=== PATIENT | female | born 1990 | race Caucasian/White ===

== ENCOUNTER 2023-06-23 18:01 | Inpatient (IN) | payer OTHER ==
[2023-06-23 19:20] VITALS: BMI 29.7
[2023-06-23] MEDS ORDERED: IBUPROFEN 400 MG TABLET (FP) PO PRN (20:24)
[2023-06-23] MEDS ORDERED: ONDANSETRON *ODT* 4 MG TABLET SL PRN (20:24)
[2023-06-23] MEDS ORDERED: guaiFENesin 600 MG TABLET.ER (FP) PO PRN (20:24)
[2023-06-23] MEDS ORDERED: MAGNESIUM HYDROX 2400MG/30ML ORAL SUSPENSION 30 ML CUP PO PRN (20:24)
[2023-06-23] MEDS ORDERED: POLYETHYLENE GLYCOL (HEALTHYLAX) 3350 17 GM PACKET PO PRN (20:24)
[2023-06-23] MEDS ORDERED: P-EPHED 60MG/TRIPROLIDI 2.5MG TABLET PO PRN (20:24)
[2023-06-23] MEDS ORDERED: BENZOCAINE/MENTHOL (CHLORASEPTIC ) LOZENGE MM PRN (20:24)
[2023-06-23] MEDS ORDERED: ACETAMINOPHEN 325 MG TABLET (FP) PO PRN (20:24)
[2023-06-23] MEDS ORDERED: BENZONATATE 200 MG CAPSULE PO PRN (20:24)
[2023-06-23] MEDS ORDERED: IBUPROFEN 600 MG TABLET (FP) PO PRN (20:24)
[2023-06-23] MEDS ORDERED: DICYCLOMINE HCL 10 MG CAPSULE PO PRN (20:24)
[2023-06-23] MEDS ORDERED: BISMUTH SUBSALICYLATE 524 MG/30 ML PO PRN (20:24)
[2023-06-23] MEDS ORDERED: LOPERAMIDE HCL 2 MG CAPSULE PO PRN (20:24)
[2023-06-23] MEDS ORDERED: chlordiazePOXIDE HCL 25 MG CAPSULE ONE (20:37)
[2023-06-23] MEDS: chlordiazePOXIDE HCL 25 MG CAPSULE PO ONE (20:43)
[2023-06-23] MEDS: propRANOLol HCL 10 MG TABLET PO ONE ×2 (23:14→23:37)
[2023-06-23] MEDS: THIAMINE HCL 100 MG TABLET (FP) PO SCH (23:31)
[2023-06-23] MEDS: hydrOXYzine PAMOATE 25 MG CAPSULE (FP) PO PRN (23:31)
[2023-06-23] MEDS: chlordiazePOXIDE HCL 25 MG CAPSULE PO SCH (23:32)
[2023-06-23] MEDS: MELATONIN 5 MG TABLETS PO SCH (23:33)
[2023-06-24] MEDS: METHOCARBAMOL 500 MG TABLET PO PRN (05:37)
[2023-06-24] MEDS: propRANOLol HCL 10 MG TABLET PO SCH (10:12)
[2023-06-24] MEDS: PRENATAL VITAMINS W/ FOLIC ACID TABLET (FP) PO SCH (10:12)
[2023-06-24 10:32] LABS: HEMATOCRIT 39.8 % (32.4-45.2); HEMOGLOBIN 13.5 GM/dL (10.7-15.3); MCH 34.5 pg (25.7-33.7); MCHC 33.8 g/dl (32.0-36.0); MEAN CELL VOLUME 102.1 fl (80-96); PLATELET COUNT 153 10^3/uL (134-434); RDW 13.6 % (11.6-15.6); WHITE BLOOD COUNT 3.3 K/mm3 (4.0-10.0)
[2023-06-24 10:51] LABS: POTASSIUM 3.9 mmol/L (3.5-5.1)
[2023-06-24 10:59] LABS: ALBUMIN 3.5 g/dl (3.4-5.0); BLOOD UREA NITROGEN 7.2 mg/dL (7-18)
[2023-06-24 11:00] LABS: BILIRUBIN,TOTAL 1.2 mg/dL (0.2-1)
[2023-06-24 11:01] LABS: TOT PROT 6.9 g/dl (6.4-8.2)
[2023-06-24 11:02] LABS: CREATININE 0.9 mg/dL (0.55-1.3)
[2023-06-24] MEDS: chlordiazePOXIDE HCL 25 MG CAPSULE PO PRN (13:45)
[2023-06-24] MEDS: MAG HYDROX/AL HYDROX/SIMETH 30 ML UNIT-DOSE CUP PO PRN (17:38)
[2023-06-25] MEDS: chlordiazePOXIDE HCL 25 MG CAPSULE PO SCH (05:42)
[2023-06-25] MEDS ORDERED: LORazepam 1 MG TABLET PO PRN (12:36)
[2023-06-25 13:01] VITALS: BP 121/83; PULSE 91; RESP 18; TEMP 97.7
[2023-06-25] MEDS ORDERED: LORazepam 2 MG TABLET PO SCH (17:00)
[2023-06-26] MEDS ORDERED: chlordiazePOXIDE HCL 10 MG CAPSULE PO PRN
[2023-06-26] MEDS ORDERED: chlordiazePOXIDE HCL 10 MG CAPSULE PO SCH (05:00)
[2023-06-26] MEDS ORDERED: LORazepam 1 MG TABLET PO SCH (05:00)
[2023-06-27] MEDS ORDERED: LORazepam 0.5 MG TABLET PO SCH (05:00)
[2023-06-27] MEDS ORDERED: chlordiazePOXIDE HCL 10 MG CAPSULE PO SCH (05:00)
[2023-06-28] MEDS ORDERED: chlordiazePOXIDE HCL 10 MG CAPSULE PO ONE (05:00)
[2023-06-28] MEDS ORDERED: LORazepam 0.5 MG TABLET PO ONE (05:00)
== END 2023-06-25 15:00 | disposition left against medical advice (07) | DRG 894 ==
LOC: YASAS 18:01 → Y6N 21:53
PROVIDERS: ADMIT Allergy & Immunology; ATTEND Surgery
PROC: HZ2ZZZZ Detoxification Services for Substance Abuse Treatment (ICD-10-PCS; principal; 2023-06-23)
DX: F10.230 Alcohol dependence with withdrawal, uncomplicated (principal); F10.220 Alcohol dependence with intoxication, uncomplicated; F10.280 Alcohol dependence with alcohol-induced anxiety disorder; F10.282 Alcohol dependence with alcohol-induced sleep disorder; R74.8 Abnormal levels of other serum enzymes
CPT/HCPCS: 36415; 80053; 85027; 86780; 87635; 93005; 93010

== ENCOUNTER 2023-12-14 19:08 | Inpatient (IN) | payer OTHER ==
[2023-12-14 19:54] VITALS: BMI 30.9
[2023-12-14] MEDS ORDERED: guaiFENesin 600 MG TABLET.ER (FP) PO PRN (20:24)
[2023-12-14] MEDS ORDERED: POLYETHYLENE GLYCOL (HEALTHYLAX) 3350 17 GM PACKET PO PRN (20:24)
[2023-12-14] MEDS ORDERED: MAGNESIUM HYDROX 2400MG/30ML ORAL SUSPENSION 30 ML CUP PO PRN (20:24)
[2023-12-14] MEDS ORDERED: BISMUTH SUBSALICYLATE 524 MG/30 ML PO PRN (20:24)
[2023-12-14] MEDS ORDERED: BENZOCAINE/MENTHOL (CHLORASEPTIC ) LOZENGE MM PRN (20:24)
[2023-12-14] MEDS ORDERED: IBUPROFEN 600 MG TABLET (FP) PO PRN (20:24)
[2023-12-14] MEDS ORDERED: NALOXONE HCL 0.4 MG/ML VIAL IM PRN (20:24)
[2023-12-14] MEDS ORDERED: DICYCLOMINE HCL 10 MG CAPSULE PO PRN (20:24)
[2023-12-14] MEDS ORDERED: NALOXONE (NARCAN) HCL 4 MG/0.1 ML SPRAY NS PRN (20:24)
[2023-12-14] MEDS ORDERED: BENZONATATE 200 MG CAPSULE PO PRN (20:24)
[2023-12-14] MEDS ORDERED: LOPERAMIDE HCL 2 MG CAPSULE PO PRN (20:24)
[2023-12-14] MEDS ORDERED: chlordiazePOXIDE HCL 25 MG CAPSULE PO PRN (20:24)
[2023-12-14] MEDS ORDERED: ACETAMINOPHEN 325 MG TABLET (FP) PO PRN (20:24)
[2023-12-14] MEDS ORDERED: chlordiazePOXIDE HCL 25 MG CAPSULE ONE (20:27)
[2023-12-14] MEDS ORDERED: TRIMETHOBENZAMIDE HCL 200MG/2ML INJ IM ONE (20:28)
[2023-12-14] MEDS ORDERED: cloNIDine HCL 0.1 MG TABLET ONE (20:28)
[2023-12-14] MEDS: MAG HYDROX/AL HYDROX/SIMETH 30 ML UNIT-DOSE CUP PO ONE (20:41)
[2023-12-14] MEDS: cloNIDine HCL 0.1 MG TABLET PO ONE (20:41)
[2023-12-14] MEDS: TRIMETHOBENZAMIDE HCL 200MG/2ML INJ IM ONE (20:41)
[2023-12-14] MEDS: chlordiazePOXIDE HCL 25 MG CAPSULE PO ONE (20:41)
[2023-12-14] MEDS: IBUPROFEN 400 MG TABLET (FP) PO PRN (21:27)
[2023-12-14] MEDS: THIAMINE 100 MG TABLET PO SCH (22:46)
[2023-12-14] MEDS: chlordiazePOXIDE HCL 25 MG CAPSULE PO SCH (22:46)
[2023-12-14] MEDS: MELATONIN 5 MG TABLETS PO SCH (22:46)
[2023-12-14] MEDS: METHOCARBAMOL 500 MG TABLET PO PRN (22:49)
[2023-12-15] MEDS: hydrOXYzine PAMOATE 25 MG CAPSULE (FP) PO PRN (00:15)
[2023-12-15] MEDS: ONDANSETRON *ODT* 4 MG TABLET SL PRN (00:15)
[2023-12-15] MEDS: MAG HYDROX/AL HYDROX/SIMETH 30 ML UNIT-DOSE CUP PO PRN (05:54)
[2023-12-15] MEDS ORDERED: cloNIDine HCL 0.1 MG TABLET PO PRN (06:22)
[2023-12-15] MEDS ORDERED: PANTOPRAZOLE 20 MG TABLET PO SCH (10:00)
[2023-12-15 10:21] LABS: HEMATOCRIT 47.5 % (32.4-45.2); MCH 34.2 pg (25.7-33.7); MCHC 33.7 g/dl (32.0-36.0); MEAN CELL VOLUME 101.4 fl (80-96); PLATELET COUNT 143 10^3/uL (134-434); RBC 4.69 M/mm3 (3.60-5.2); RDW 14.2 % (11.6-15.6)
[2023-12-15] MEDS: diazePAM 5 MG TABLET PO SCH (10:28)
[2023-12-15] MEDS: PANTOPRAZOLE 40 MG TABLET PO SCH (10:28)
[2023-12-15] MEDS: PRENATAL VITAMINS W/ FOLIC ACID TABLET (FP) PO SCH (10:28)
[2023-12-15 10:29] LABS: CHLORIDE 95 mmol/L (98-107); SODIUM 128 mmol/L (136-145)
[2023-12-15 10:30] LABS: POTASSIUM 6.8 mmol/L (3.5-5.1)
[2023-12-15 10:37] LABS: ALBUMIN 4.2 g/dl (3.4-5.0); ANION GAP 14 mmol/L (4-13); CO2 20 mmol/L (21-32)
[2023-12-15 10:39] LABS: BLOOD UREA NITROGEN 20.7 mg/dL (7-18); GLUCOSE,RANDOM 147 mg/dL (74-106); SGOT/AST 204 U/L (15-37); SGPT/ALT 146 U/L (13-61)
[2023-12-15 10:40] LABS: BILIRUBIN,TOTAL 3.5 mg/dL (0.2-1)
[2023-12-15 10:41] LABS: ALK PHOS 141 U/L (45-117)
[2023-12-15 10:42] LABS: CALCIUM 8.2 mg/dL (8.5-10.1); CREATININE 2.9 mg/dL (0.55-1.3)
[2023-12-15 14:56] LABS: POTASSIUM 6.9 mmol/L (3.5-5.1)
[2023-12-15] MEDS: SODIUM POLYSTYRENE SULFONATE 15 GM/60 ML BOTTLE PO ONE (16:05)
[2023-12-15] MEDS: traZODone HCL 50 MG TABLET (FP) PO SCH (22:34)
[2023-12-16] MEDS ORDERED: chlordiazePOXIDE HCL 25 MG CAPSULE PO SCH (05:00)
[2023-12-16 10:30] LABS: CHLORIDE 89 mmol/L (98-107); POTASSIUM 5.8 mmol/L (3.5-5.1); SODIUM 125 mmol/L (136-145)
[2023-12-16 10:34] LABS: ANION GAP 16 mmol/L (4-13); CO2 20 mmol/L (21-32)
[2023-12-16 10:36] LABS: GLUCOSE,RANDOM 178 mg/dL (74-106)
[2023-12-16 10:38] LABS: CREATININE 6.1 mg/dL (0.55-1.3); SGOT/AST 178 U/L (15-37); SGPT/ALT 84 U/L (13-61)
[2023-12-16 10:41] LABS: BILIRUBIN,TOTAL 3.2 mg/dL (0.2-1); TOT PROT 6.5 g/dl (6.4-8.2)
[2023-12-16 10:42] LABS: ALBUMIN 3.3 g/dl (3.4-5.0); ALK PHOS 98 U/L (45-117); CALCIUM 5.7 mg/dL (8.5-10.1)
[2023-12-16] MEDS: diazePAM 5 MG TABLET PO PRN (12:40)
[2023-12-16 15:15] VITALS: BP 132/91; PULSE 127; RESP 19; TEMP 97.7
[2023-12-17] MEDS ORDERED: chlordiazePOXIDE HCL 10 MG CAPSULE PO PRN
[2023-12-17] MEDS ORDERED: chlordiazePOXIDE HCL 10 MG CAPSULE PO SCH (05:00)
[2023-12-17] MEDS ORDERED: diazePAM 5 MG TABLET PO SCH (06:00)
[2023-12-18] MEDS ORDERED: chlordiazePOXIDE HCL 10 MG CAPSULE PO SCH (05:00)
[2023-12-18] MEDS ORDERED: diazePAM 5 MG TABLET PO SCH (06:00)
[2023-12-19] MEDS ORDERED: chlordiazePOXIDE HCL 10 MG CAPSULE PO ONE (05:00)
[2023-12-19] MEDS ORDERED: diazePAM 5 MG TABLET PO ONE (06:00)
== END 2023-12-16 21:55 | disposition short-term general hospital (02) | DRG 897 ==
LOC: YASAS 19:08 → Y6N 20:45
PROVIDERS: ADMIT Allergy & Immunology; ATTEND Surgery
PROC: HZ2ZZZZ Detoxification Services for Substance Abuse Treatment (ICD-10-PCS; principal; 2023-12-14)
DX: F10.230 Alcohol dependence with withdrawal, uncomplicated (principal); F10.280 Alcohol dependence with alcohol-induced anxiety disorder; R42 Dizziness and giddiness; E83.51 Hypocalcemia; R74.9 Abnormal serum enzyme level, unspecified; R00.0 Tachycardia, unspecified; K21.9 Gastro-esophageal reflux disease without esophagitis
CPT/HCPCS: 36415; 80053; 80305; 80307; 81025; 84132; 85027; 86780; 93005; 93010; Q0162

== ENCOUNTER 2023-12-16 15:37 | Emergency (ER) | payer OTHER ==
[2023-12-16 15:53] VITALS: BMI 30.9
[2023-12-16] MEDS ORDERED: ACETAMINOPHEN INJECTION 100 ML IVPB ONE (16:00)
[2023-12-16] MEDS ORDERED: THIAMINE HCL 200 MG/2 ML VIAL ONE (16:00)
[2023-12-16] MEDS ORDERED: FAMOTIDINE 20 MG/50 ML IVPB 20 MG/50 ML MG IVPB ONE (16:02)
[2023-12-16] MEDS: LACTATED RINGERS SOLUTION 1000 ML INFUS.BAG IV ONE (16:31)
[2023-12-16] MEDS: THIAMINE HCL 200 MG/2 ML VIAL IVPB ONE (16:32)
[2023-12-16] MEDS: ACETAMINOPHEN 1000 MG/100 ML BAG IVPB ONE (16:32)
[2023-12-16] MEDS: FAMOTIDINE 20 MG/50 ML IVPB 20 MG/50 ML MG IVPB ONE (16:33)
[2023-12-16 16:41] LABS: BASO % 0.4 % (0-2.0); EOS % 0.1 % (0-4.5); HEMATOCRIT 45.4 % (32.4-45.2); HEMOGLOBIN 15.4 GM/dL (10.7-15.3); MCH 34.1 pg (25.7-33.7); MCHC 33.9 g/dl (32.0-36.0); MEAN CELL VOLUME 100.8 fl (80-96); MEAN PLT VOLUME 9.8 fl (7.5-11.1); MONO % 6.3 % (3.8-10.2); NEUT % 85.2 % (42.8-82.8); PLATELET COUNT 105 10^3/uL (134-434); RDW 14.6 % (11.6-15.6); VENOUS BASE EXCESS -5.5 mmol/L (-2-2); VENOUS O2 SATURATION 37.8 % (70-80); VENOUS PCO2 36.9 mmHg (38-52); VENOUS PH 7.341 (7.310-7.410); WHITE BLOOD COUNT 13.1 K/mm3 (4.0-10.0)
[2023-12-16 16:48] LABS: INR 1.15 (0.83-1.09); PROTHROMBIN TIME (PATIENT) 12.9 SEC (9.7-13.0)
[2023-12-16 16:51] LABS: ACTIVATED PTT 31.2 SECONDS (25.2-36.5)
[2023-12-16 17:05] LABS: CHLORIDE 89 mmol/L (98-107); SODIUM 126 mmol/L (136-145)
[2023-12-16 17:06] LABS: POTASSIUM 6.2 mmol/L (3.5-5.1)
[2023-12-16 17:08] LABS: ALBUMIN 3.5 g/dl (3.4-5.0); ANION GAP 17 mmol/L (4-13); BLOOD UREA NITROGEN 51.4 mg/dL (7-18); CO2 19 mmol/L (21-32); MAGNESIUM 1.3 mg/dL (1.8-2.4)
[2023-12-16 17:09] LABS: GLUCOSE,RANDOM 160 mg/dL (74-106)
[2023-12-16 17:11] LABS: CREATININE 6.7 mg/dL (0.55-1.3); PHOSPHOROUS 1.2 mg/dL (2.5-4.9); SGOT/AST 165 U/L (15-37); SGPT/ALT 87 U/L (13-61)
[2023-12-16 17:13] LABS: ALK PHOS 109 U/L (45-117); BILIRUBIN,TOTAL 3.2 mg/dL (0.2-1); CALCIUM 5.4 mg/dL (8.5-10.1); TOT PROT 7.1 g/dl (6.4-8.2)
[2023-12-16] MEDS ORDERED: morphine SULFATE 4 MG/ML VIAL ONE (17:15)
[2023-12-16] MEDS ORDERED: ONDANSETRON 4 MG/2 ML VIAL ONE ×2 (17:15→21:01)
[2023-12-16 17:17] LABS: N-TERMINAL BNP 828.5 pg/ml (5-125)
[2023-12-16] MEDS: morphine CARPU-JECT 4 MG/1 ML DISP.SYRIN IVPUSH ONE (17:39)
[2023-12-16] MEDS: FOLIC ACID 5 MG/1 ML SQ ONE (17:40)
[2023-12-16] MEDS: ONDANSETRON 4 MG/2 ML VIAL IVPUSH ONE (17:40)
[2023-12-16 18:11] LABS: BILIRUBIN,DIRECT 1.8 mg/dL (0.0-0.2)
[2023-12-16 18:12] LABS: EPI CELLS 8 /uL (0-25.1); HYALINE CASTS 6 /uL (0-3.1); PH,URINE 5.5 (5.0-8.0); URINE APPEARANCE CLOUDY; URINE BACTERIA >9,000 /uL (0-1359); URINE BILIRUBIN 1+ (NEGATIVE); URINE COLOR DK YELLOW; URINE GLUCOSE (UA) NEGATIVE (NEGATIVE); URINE KETONE TRACE (NEGATIVE); URINE LEUK ESTERASE 2+ (NEGATIVE); URINE NITRITE NEGATIVE (NEGATIVE); URINE PROTEIN 2+ (NEGATIVE); URINE UROBILINOGEN 0.2 mg/dL (0.2-1.0); URINE WBC 364 /uL (0-25.8)
[2023-12-16] MEDS ORDERED: MAGNESIUM SULFATE IN WATER 2 GM/50 ML IVPB IVPB ONE (18:17)
[2023-12-16] MEDS ORDERED: NAPH,MB-DB/K PH,MBDB POWDER PACKET ONE (18:17)
[2023-12-16 18:43] LABS: CHLORIDE 93 mmol/L (98-107); POTASSIUM 5.2 mmol/L (3.5-5.1); SODIUM 125 mmol/L (136-145)
[2023-12-16 18:44] LABS: ANION GAP 13 mmol/L (4-13); BLOOD UREA NITROGEN 51.9 mg/dL (7-18); CO2 20 mmol/L (21-32); GLUCOSE,RANDOM 130 mg/dL (74-106)
[2023-12-16 18:49] LABS: CREATININE 6.4 mg/dL (0.55-1.3)
[2023-12-16] MEDS: NAPH,MB-DB/K PH,MBDB POWDER PACKET PO ONE (18:57)
[2023-12-16] MEDS: MAGNESIUM SULFATE IN WATER 2 GM/50 ML IVPB IVPB ONE (18:57)
[2023-12-16] MEDS: SODIUM CHLORIDE 0.9% 500 ML INFUS.BAG IV ONE (18:57)
[2023-12-16 19:01] VITALS: RESP 20
[2023-12-16 19:01] LABS: URINE RBC 80.6 /uL (0-23.9)
[2023-12-16 19:32] LABS: CALCIUM < 5.0 mg/dL (8.5-10.1)
[2023-12-16] MEDS: PIPERACILLIN/TAZOB 2.25 GM 2.25 GM in DEXTROSE 5%-WATER - 50 ML IVPB ONE (19:46)
[2023-12-16] MEDS ORDERED: PIPERACILLIN/TAZOB 2.25 GM 2.25 GM/50 ML BAG IVPB ONE (19:47)
[2023-12-16] MEDS: SODIUM CHLORIDE 1,000 ML IV SCH (19:49)
[2023-12-16 19:57] VITALS: BP 131/91; PULSE 109; TEMP 98.7
[2023-12-16] MEDS ORDERED: SODIUM ZIRCONIUM CYCLOSILICATE (LOKELMA) 10 GM PACKET ONE (20:07)
[2023-12-16] MEDS: SODIUM ZIRCONIUM CYCLOSILICATE (LOKELMA) 5 GM PACKET PO ONE (20:19)
[2023-12-16] MEDS: SODIUM CHLORIDE 3,000 ML IV STA (20:59)
[2023-12-16] MEDS: MORPHINE SULFATE 2 MG/ML SYRINGE IVPUSH PRN (20:59)
[2023-12-16] MEDS: ONDANSETRON 4 MG/2 ML VIAL IVPUSH PRN (20:59)
[2023-12-16] MEDS ORDERED: MORPHINE SULFATE 2 MG/ML SYRINGE ONE (21:01)
[2023-12-16 21:29] LABS: HIV INTERPRETATION NEGATIVE (NEGATIVE)
[2023-12-16] MEDS: SODIUM CHLORIDE 2,000 ML IV STA (21:32)
[2023-12-16 21:35] LABS: BASO % 0.5 % (0-2.0); EOS % 0.5 % (0-4.5); HEMATOCRIT 32.5 % (32.4-45.2); HEMOGLOBIN 11.4 GM/dL (10.7-15.3); LYMPH % 11.5 % (8-40); MCH 34.8 pg (25.7-33.7); MCHC 34.9 g/dl (32.0-36.0); MEAN CELL VOLUME 99.5 fl (80-96); MEAN PLT VOLUME 9.1 fl (7.5-11.1); NEUT % 79.5 % (42.8-82.8); PLATELET COUNT 75 10^3/uL (134-434); RBC 3.27 M/mm3 (3.60-5.2); RDW 14.5 % (11.6-15.6); WHITE BLOOD COUNT 8.9 K/mm3 (4.0-10.0)
[2023-12-16 21:44] LABS: CHLORIDE 95 mmol/L (98-107); POTASSIUM 5.9 mmol/L (3.5-5.1); SODIUM 126 mmol/L (136-145)
[2023-12-16 21:46] LABS: ANION GAP 14 mmol/L (4-13); BLOOD UREA NITROGEN 51.1 mg/dL (7-18); CO2 17 mmol/L (21-32); GLUCOSE,RANDOM 127 mg/dL (74-106)
[2023-12-16 21:49] LABS: BILIRUBIN,DIRECT 1.1 mg/dL (0.0-0.2); SGOT/AST 133 U/L (15-37); SGPT/ALT 60 U/L (13-61)
[2023-12-16 21:50] LABS: ANISOCYTOSIS 1+; MACROCYTOSIS 1+
[2023-12-16 21:51] LABS: BILIRUBIN,TOTAL 2.7 mg/dL (0.2-1)
[2023-12-16 21:52] LABS: ALK PHOS 84 U/L (45-117)
[2023-12-16 21:58] LABS: COCAINE, UR NEGATIVE (NEGATIVE); METHADONE, UR NEGATIVE (NEGATIVE); PHENCYCLIDINE,URINE NEGATIVE (NEGATIVE); URINE AMPHETAMINES NEGATIVE (NEGATIVE); URINE BARBITURATES NEGATIVE (NEGATIVE)
[2023-12-16 22:01] LABS: CALCIUM < 5.0 mg/dL (8.5-10.1); TOT PROT 5.5 g/dl (6.4-8.2)
[2023-12-16 22:13] LABS: INR 1.27 (0.83-1.09); PROTHROMBIN TIME (PATIENT) 14.2 SEC (9.7-13.0)
[2023-12-16 22:14] LABS: ALBUMIN 2.5 g/dl (3.4-5.0)
[2023-12-16 22:14] LABS: OPIATES, URI POSITIVE (NEGATIVE); URINE BENZODIAZEPINES POSITIVE (NEGATIVE)
[2023-12-16 22:32] LABS: LDH 1210 U/L (84-246)
[2023-12-17] MEDS ORDERED: SODIUM ZIRCONIUM CYCLOSILICATE (LOKELMA) 5 GM PACKET PO ONE (18:45)
== END 2023-12-16 22:49 | disposition short-term general hospital (02) ==
LOC: JER 15:37
PROC: 3E033GC Introduction of Other Therapeutic Substance into Peripheral Vein, Percutaneous Approach (ICD-10-PCS; principal; 2023-12-16)
PROC: 3E033GC Introduction of Other Therapeutic Substance into Peripheral Vein, Percutaneous Approach (ICD-10-PCS; 2023-12-16)
PROC: 3E03329 Introduction of Other Anti-infective into Peripheral Vein, Percutaneous Approach (ICD-10-PCS; 2023-12-16)
PROC: 3E033NZ Introduction of Analgesics, Hypnotics, Sedatives into Peripheral Vein, Percutaneous Approach (ICD-10-PCS; 2023-12-16)
PROC: 3E033NZ Introduction of Analgesics, Hypnotics, Sedatives into Peripheral Vein, Percutaneous Approach (ICD-10-PCS; 2023-12-16)
PROC: 3E033GC Introduction of Other Therapeutic Substance into Peripheral Vein, Percutaneous Approach (ICD-10-PCS; 2023-12-16)
PROC: 3E033GC Introduction of Other Therapeutic Substance into Peripheral Vein, Percutaneous Approach (ICD-10-PCS; 2023-12-16)
PROC: 3E033GC Introduction of Other Therapeutic Substance into Peripheral Vein, Percutaneous Approach (ICD-10-PCS; 2023-12-16)
PROC: 3E023GC Introduction of Other Therapeutic Substance into Muscle, Percutaneous Approach (ICD-10-PCS; 2023-12-16)
DX: I82.890 Acute embolism and thrombosis of other specified veins (principal); E87.1 Hypo-osmolality and hyponatremia; E83.51 Hypocalcemia; N12 Tubulo-interstitial nephritis, not specified as acute or chronic; K85.20 Alcohol induced acute pancreatitis without necrosis or infection; F10.988 Alcohol use, unspecified with other alcohol-induced disorder; N19 Unspecified kidney failure; R10.84 Generalized abdominal pain; R53.1 Weakness; R42 Dizziness and giddiness; R51.9 Headache, unspecified; R55 Syncope and collapse; R00.0 Tachycardia, unspecified; R50.9 Fever, unspecified
CPT/HCPCS: 36415; 71045-TC-FY; 74176-TC; 76700-TC; 80048; 80053; 80076; 80307; 81003; 82248; 82570; 82803; 83615; 83690; 83735; 83880; 84100; 84300; 84484; 84703; 85025; 85397; 85610; 85730; 86704; 86706; 86707; 86850; 86900; 86901; 87086; 87186; 87350; 87389; 87517; 87522; 87536; 87902; 93005; 93010; 99285-25; J0131

== ENCOUNTER 2024-10-12 12:58 | Inpatient (IN) | payer OTHER ==
[2024-10-12 13:49] VITALS: BMI 25.8
[2024-10-12] MEDS ORDERED: POLYETHYLENE GLYCOL (HEALTHYLAX) 3350 17 GM PACKET PO PRN (14:18)
[2024-10-12] MEDS ORDERED: BISMUTH SUBSALICYLATE 262 MG/15 ML BTL PO PRN (14:18)
[2024-10-12] MEDS ORDERED: LOPERAMIDE HCL 2 MG CAPSULE PO PRN (14:18)
[2024-10-12] MEDS ORDERED: guaiFENesin 600 MG TABLET.ER (FP) PO PRN (14:18)
[2024-10-12] MEDS ORDERED: MAGNESIUM HYDROX 2400MG/30ML ORAL SUSPENSION 30 ML CUP PO PRN (14:18)
[2024-10-12] MEDS ORDERED: NALOXONE (NARCAN) HCL 4 MG/0.1 ML SPRAY NS PRN (14:18)
[2024-10-12] MEDS ORDERED: BENZONATATE 200 MG CAPSULE PO PRN (14:18)
[2024-10-12] MEDS ORDERED: IBUPROFEN 400 MG TABLET (FP) PO PRN (14:18)
[2024-10-12] MEDS ORDERED: DICYCLOMINE HCL 10 MG CAPSULE PO PRN (14:18)
[2024-10-12] MEDS ORDERED: BENZOCAINE/MENTHOL (CHLORASEPTIC ) LOZENGE MM PRN (14:18)
[2024-10-12] MEDS ORDERED: MAG HYDROX/AL HYDROX/SIMETH 30 ML UNIT-DOSE CUP PO PRN (14:18)
[2024-10-12] MEDS: diazePAM 5 MG TABLET PO SCH (17:34)
[2024-10-12] MEDS: ONDANSETRON *ODT* 4 MG TABLET SL PRN (17:35)
[2024-10-12] MEDS: IBUPROFEN 600 MG TABLET (FP) PO PRN (17:35)
[2024-10-12] MEDS: diazePAM 5 MG TABLET PO PRN (20:11)
[2024-10-12] MEDS: TRIMETHOBENZAMIDE HCL 200MG/2ML INJ IM ONE (22:00)
[2024-10-12] MEDS: hydrOXYzine PAMOATE 25 MG CAPSULE (FP) PO PRN (22:13)
[2024-10-12] MEDS: METHOCARBAMOL 500 MG TABLET PO PRN (22:13)
[2024-10-12] MEDS: THIAMINE 100 MG TABLET PO SCH (22:13)
[2024-10-12] MEDS: ACETAMINOPHEN 325 MG TABLET (FP) PO PRN (22:13)
[2024-10-12] MEDS: MELATONIN 5 MG TABLETS PO SCH (22:13)
[2024-10-13] MEDS ORDERED: chlordiazePOXIDE HCL 25 MG CAPSULE PO PRN (08:58)
[2024-10-13] MEDS: PRENATAL VITAMINS W/ FOLIC ACID TABLET (FP) PO SCH (10:05)
[2024-10-13] MEDS: chlordiazePOXIDE HCL 25 MG CAPSULE PO SCH (10:05)
[2024-10-13 10:59] LABS: HEMOGLOBIN 14.4 g/dL (11.2-15.7); MEAN CELL VOLUME 96.8 fl (79.4-94.8); RDW 11.9 % (12.1-16.8)
[2024-10-13 11:00] LABS: HEMATOCRIT 41.8 % (34.1-44.9); MCHC 34.4 g/dl (32.2-35.5); MEAN PLT VOLUME 9.7 fl (9.4-12.3); PLATELET COUNT 66 x10^3/uL (182-369)
[2024-10-13 11:29] LABS: BLOOD UREA NITROGEN 7.3 mg/dL (7-18)
[2024-10-13 11:30] LABS: ALBUMIN 3.8 g/dl (3.4-5.0); CALCIUM 9.3 mg/dL (8.5-10.1)
[2024-10-13 11:33] LABS: CREATININE 0.9 mg/dL (0.55-1.3)
[2024-10-13 11:34] LABS: BILIRUBIN,TOTAL 2.9 mg/dL (0.2-1)
[2024-10-13 12:02] LABS: TOT PROT 7.2 g/dl (6.4-8.2)
[2024-10-13] MEDS ORDERED: LORazepam 1 MG TABLET PO PRN (12:07)
[2024-10-13] MEDS ORDERED: LORazepam 1 MG TABLET PO SCH (17:00)
[2024-10-13 17:05] VITALS: BP 141/104; PULSE 110; RESP 18; TEMP 97.3
[2024-10-14] MEDS ORDERED: diazePAM 5 MG TABLET PO SCH (06:00)
[2024-10-14] MEDS ORDERED: LORazepam 1 MG TABLET PO SCH (11:00)
[2024-10-15] MEDS ORDERED: LORazepam 0.5 MG TABLET PO PRN
[2024-10-15] MEDS ORDERED: chlordiazePOXIDE HCL 25 MG CAPSULE PO SCH (05:00)
[2024-10-15] MEDS ORDERED: LORazepam 0.5 MG TABLET PO SCH (05:00)
[2024-10-15] MEDS ORDERED: diazePAM 5 MG TABLET PO SCH (06:00)
[2024-10-16] MEDS ORDERED: chlordiazePOXIDE HCL 10 MG CAPSULE PO PRN
[2024-10-16] MEDS ORDERED: chlordiazePOXIDE HCL 10 MG CAPSULE PO SCH (05:00)
[2024-10-16] MEDS ORDERED: LORazepam 0.5 MG TABLET PO ONE (05:00)
[2024-10-16] MEDS ORDERED: diazePAM 5 MG TABLET PO ONE (06:00)
[2024-10-17] MEDS ORDERED: chlordiazePOXIDE HCL 10 MG CAPSULE PO SCH (05:00)
[2024-10-18] MEDS ORDERED: chlordiazePOXIDE HCL 10 MG CAPSULE PO ONE (05:00)
== END 2024-10-13 16:45 | disposition left against medical advice (07) | DRG 894 ==
LOC: YASAS 12:58 → Y3N 14:50
PROVIDERS: ADMIT Allergy & Immunology; ATTEND Allergy & Immunology
PROC: HZ2ZZZZ Detoxification Services for Substance Abuse Treatment (ICD-10-PCS; principal; 2024-10-12)
DX: F10.230 Alcohol dependence with withdrawal, uncomplicated (principal); K86.1 Other chronic pancreatitis; F10.220 Alcohol dependence with intoxication, uncomplicated; G47.00 Insomnia, unspecified; R74.8 Abnormal levels of other serum enzymes
CPT/HCPCS: 36415; 80053; 80307; 85027; 86780; 93005; 93010; Q0162